=== PATIENT | female | born 1960 | race Hispanic/Latino ===

== ENCOUNTER 2016-10-02 08:05 | Day surgery (SDC) | payer OTHER ==
[~2016-10-02] VITALS: Ht 162.6 cm; Wt 64.0 kg
[~2016-10-02 08:05] MED LIST: ACET325T51 PO; CALC-78 PO; FLUT16SP NS; MULT-1018 PO; PANT40TA3 PO; RANI150C4 PO; Sodium Chloride LOK Flush 10 mL Syringe IV PRN; VIT1TABL83 PO; VITA400C64 PO; fentaNYL-PF 50 mCg/mL 2 mL Inj IVPUSH PRN
[2016-10-02 08:59] VITALS: BP 130/92; PULSE 44; RESP 14; O2SAT 100
[2016-10-02] MEDS ORDERED: 0.9% Sodium Chloride 1,000 ML IV ONE (09:19)
[2016-10-02 09:40] VITALS: BP 112/74; PULSE 43; RESP 16; O2SAT 93
[2016-10-02 09:50] VITALS: BP 110/68; PULSE 41; RESP 16; O2SAT 97
[2016-10-02 09:58] VITALS: BP 131/84; PULSE 43; RESP 16; O2SAT 100
--- NOTE | 2016-10-02 16:25 | ENDO ---
[address] [address] ENDOSCOPY PROCEDURE PATIENT: XIAO DUMONT : 1960 MR#: [id number] ADMIT: 10/02/2016 JOB ID: [id number] DATE: 10/02/2016 TYPE OF OPERATION: Esophagogastroduodenoscopy with biopsy. PREOPERATIVE DIAGNOSIS(ES): Gastroesophageal reflux disease. POSTOPERATIVE DIAGNOSIS(ES): Normal upper endoscopy, status post biopsy. ANESTHESIA: 1. Fentanyl 75 mcg. 2. Versed 4 mg IV administered. COMPLICATIONS: None. BLOOD LOSS: Minimal. DESCRIPTION OF PROCEDURE: After risks and benefits were explained to the patient, informed consent was obtained. After anesthesia administered, an upper endoscope was then inserted in the mouth, intubated into the esophagus, stomach, second portion of duodenum. Mucosa carefully examined. After procedure was done, the scope was withdrawn and the procedure was terminated. FINDINGS: Upon inspection of the esophagus, the esophagus was normal without masses, ulcers, or lesions. Z-line located 40 cm from incisors. Upon entering the stomach, the stomach was normal without masses, ulcers, or lesions. Retroflexion was normal. Duodenal bulb, first and second portion were normal. Biopsy of the antrum and body of the stomach and distal esophagus. IMPRESSIONS: Normal upper endoscopy, status post biopsy. RECOMMENDATION: 1. Await pathology results. 2. Followup will Jimmie Smyth in the outpatient GI clinic.
--- NOTE | 2016-10-06 13:10 | PATH ---
SURGICAL PATHOLOGY Attending Physician:Crow Barrett MD CASE STATUS: Signed Out PATIENT NAME: XIAO DUMONT PID: [id number] : 1960 DATE COLLECTED:10/02/2016 16:33 SPECIMEN: 1: Stomach, Antrum, Biopsy 2: Gastric, Biopsy 3: Esophagus, Biopsy CLINICAL HISTORY: 1. ANTRUM BX 2. BODY BX 3. DISTAL ESOPHAGUS BX FINAL DIAGNOSIS: 1.STOMACH, ANTRUM, BIOPSIES: ANTRAL MUCOSA WITH NO DIAGNOSTIC ABNORMALITY. Negative for Helicobacter organisms. Negative for intestinal metaplasia. Negative for dysplasia and malignancy. 2.STOMACH, BODY, BIOPSIES: BODY-TYPE MUCOSA WITH NO DIAGNOSTIC ABNORMALITY. Negative for Helicobacter organisms. Negative for intestinal metaplasia. Negative for dysplasia and malignancy. 3.ESOPHAGUS, DISTAL, BIOPSIES: SQUAMOUS EPITHELIUM WITH NO DIAGNOSTIC ABNORMALITY. Intraepithelial eosinophils are not increased. Negative for dysplasia and malignancy. ICD10 code R10.9 GROSS DESCRIPTION: The specimen is received in three formalin filled containers labeled with the patient's name. 1). The specimen is sublabeled "antrum" and consists of 2 portions of tissue which aggregate to 0.3 x 0.3 x 0.2 CM. The specimen is entirely submitted in cassette 1A. 2). The specimen is sublabeled "body" and consists of 2 portions of tissue which aggregate to 0.4 x 0.3 x 0.2 CM. The specimen is entirely submitted in cassette 2A. 3). The specimen is sublabeled "distal esophagus" and consists of a 0.3 x 0.2 x 0.1 CM portion of tissue which is entirely submitted in cassette 3A. 10/02/2016 DAC MICRO DESCRIPTION: See diagnosis. ICD-9 CODES: CPT CODES: 1: 60707 2: 50317 3: 75342 Electronically Signed Out Romana Farmer MD [facility] [address], [place] [address] Technical component performed at [facility], [facility] [address], [place], [address]
== END 2016-10-02 23:59 | disposition home or self-care (01) ==
LOC: END 08:05
PROVIDERS: ATTEND Internal Medicine Gastroenterology
DX: K21.9 Gastro-esophageal reflux disease without esophagitis (principal)
CPT/HCPCS: 43239; J7030